=== PATIENT | female | born 1990 | race Two or more races ===

== ENCOUNTER 2021-09-15 04:25 | Inpatient (IN) | payer OTHER ==
[~2021-09-15] VITALS: Ht 165.1 cm; Wt 3.2 kg
[2021-09-15] MEDS ORDERED: PRENATAL PLUS1 EAC1 PO (07:58)
[2021-09-15] MEDS ORDERED: AMPICILLIN TRI500 MG PO (07:59)
[2021-09-15] MEDS ORDERED: NIFEDIPINE20 MG (08:04)
[2021-09-15] MEDS ORDERED: IRON236 MG (08:05)
[2021-09-15] MEDS ORDERED: CHILDREN'S ASPI81 MG (08:05)
== END 2021-09-17 13:43 | disposition home or self-care (01) | DRG 788 ==
LOC: O/R 04:25 → LDR 04:25 → EDSEX 04:25 → SURG-SUITE 04:25 → O/R 13:27 → OB/GYN 14:54 → SURG-SUITE 16:36
PROVIDERS: ADMIT Specialist; ATTEND Specialist
PROC: 4A1HXCZ Monitoring of Products of Conception, Cardiac Rate, External Approach (ICD-10-PCS; 2021-09-15)
PROC: 10D00Z1 Extraction of Products of Conception, Low, Open Approach (ICD-10-PCS; principal; 2021-09-15 14:15)
DX: O82 Encounter for cesarean delivery without indication (principal); Z3A.37 37 weeks gestation of pregnancy; Z37.0 Single live birth; Z20.822 Contact with and (suspected) exposure to COVID-19

== ENCOUNTER 2023-07-29 13:45 | Inpatient (IN) | payer OTHER ==
[~2023-07-29] VITALS: Ht 165.1 cm; Wt 3.2 kg
[~2023-07-29 13:45] MED LIST: AMPICILLIN TRI500 MG PO; CHILDREN'S ASPI81 MG; IRON236 MG; NIFEDIPINE20 MG; PRENATAL PLUS1 EAC1 PO
[2023-07-29] MEDS ORDERED: AMPICILLIN SODIUM 2,000 MG VIAL ONE (14:27)
[2023-07-29] MEDS ORDERED: AMPICILLIN SODIUM 2,000 MG VIAL IV STA (14:34)
[2023-07-29] MEDS ORDERED: LOVENOX40 MG/0.4 SUBCUTANEO (14:37)
[2023-07-29] MEDS ORDERED: ABANEU-SL TABL1 EACH SL (14:43)
[2023-07-29] MEDS ORDERED: RINGERS SOLUTION,LACTATED 1,000 ML IV SCH (14:45)
[2023-07-29] MEDS ORDERED: OXYTOCIN 10 UNITS/ML VIAL ONE (17:17)
[2023-07-29] MEDS ORDERED: CEFAZOLIN SODIUM 1,000 MG VIAL ONE (17:17)
[2023-07-29] MEDS ORDERED: ERYTHROMYCIN BASE 3.5 GM OINT...G. OP ONE (17:17)
[2023-07-29] MEDS ORDERED: CARBOPROST TROMETHAMINE 250 MCG/ML AMPUL IM ONE ×2 (17:19→19:45)
[2023-07-29] MEDS ORDERED: CEFAZOLIN SODIUM 1,000 MG VIAL IV STA (18:29)
[2023-07-29] MEDS ORDERED: CEFAZOLIN SODIUM 1,000 MG VIAL IV SCH (18:30)
[2023-07-29] MEDS ORDERED: PROMETHAZINE HCL 25 MG/ML AMPUL IV SCH (18:30)
[2023-07-29] MEDS ORDERED: MEPERIDINE HCL/PF 50 MG/ML VIAL IM SCH (18:30)
[2023-07-29] MEDS ORDERED: ERYTHROMYCIN BASE 1 GM TUBE OP ONE (19:45)
[2023-07-29] MEDS ORDERED: OXYTOCIN 10 UNITS/ML VIAL IV ONE (19:45)
[2023-07-29] MEDS ORDERED: PROMETHAZINE HCL 50 MG/ML AMPUL ONE (20:51)
[2023-07-30 07:03] LABS: HEMOGLOBIN 10.3 g/dL (12.0-15.00); MEAN CELL VOLUME 82.4 fL (80.00-100.00); MEAN CORPUSCULAR HEMOGLOBIN 29.2 pg (27.00-32.0); MEAN CORPUSCULAR HGB CONC 35.4 g/dl (32.0-36.0); PLATELET COUNT 250 K/uL (150-450); RED BLOOD COUNT 3.52 M/uL (4.00-6.00)
[2023-07-30] MEDS ORDERED: IRON FUM,PS/FOLIC/BCOMP,C NO.9 1 CAP CAPSULE PO STA (08:21)
[2023-07-30] MEDS ORDERED: ACETAMINOPHEN 500 MG GEL..CAP PO PRN (08:30)
[2023-07-30] MEDS ORDERED: TRAMADOL HCL 50 MG TABLET PO SCH (09:00)
[2023-07-31] MEDS ORDERED: IRON FUM,PS/FOLIC/BCOMP,C NO.9 1 CAP CAPSULE PO SCH (09:00)
[2023-08-01] MEDS ORDERED: ENOXAPARIN SODIUM 40 MG/0.4 ML SYRINGE SUBCUTANEO SCH (09:00)
== END 2023-08-01 13:37 | disposition home or self-care (01) | DRG 785 ==
LOC: OB/GYN 13:45 → LDR 13:45 → O/R 17:42 → OB/GYN 18:26 → O/R 18:33 → OB/GYN 18:45
PROVIDERS: ADMIT Specialist; ATTEND Specialist
PROC: 0UB70ZZ Excision of Bilateral Fallopian Tubes, Open Approach (ICD-10-PCS; 2023-07-29)
PROC: 4A1HXCZ Monitoring of Products of Conception, Cardiac Rate, External Approach (ICD-10-PCS; 2023-07-29)
PROC: 10D00Z1 Extraction of Products of Conception, Low, Open Approach (ICD-10-PCS; principal; 2023-07-29 15:45)
DX: O34.211 Maternal care for low transverse scar from previous cesarean delivery (principal); Z30.2 Encounter for sterilization; Z3A.37 37 weeks gestation of pregnancy; Z37.0 Single live birth; Z20.822 Contact with and (suspected) exposure to COVID-19